=== PATIENT | female | born 1965 | race Caucasian/White ===

== ENCOUNTER 2019-04-03 06:52 | Day surgery (SDC) | payer OTHER ==
[2019-04-02] MEDS: CEFAZOLIN 2 GM/50 ML (PMX) 50 ML IVPB (05:30)
[2019-04-03] MEDS ORDERED: GABAPENTIN 300 MG CAP ×2 (09:18→09:23)
[2019-04-03] MEDS ORDERED: DEXAMETHASONE 2 MG TAB (09:19)
[2019-04-03] MEDS: DEXAMETHASONE 1 MG TAB PO (09:22)
[2019-04-03] MEDS ORDERED: DEXAMETHASONE 1 MG TAB (09:22)
[2019-04-03] MEDS: GABAPENTIN 300 MG CAP PO (09:23)
[2019-04-03] MEDS ORDERED: FENTAnyl 50 MCG/ML VIAL (11:34)
[2019-04-03] MEDS ORDERED: ROPIVACAINE 0.5 % 30 ML VIAL (11:34)
[2019-04-03] MEDS ORDERED: PROPOFOL 20 ML (11:34)
[2019-04-03] MEDS ORDERED: ROCURONIUM 50 MG INJ (11:34)
[2019-04-03] MEDS ORDERED: MIDAZOLAM 1 MG/ML 2 ML INJ (11:34)
[2019-04-03] MEDS ORDERED: CEFAZOLIN 1 GM INJ (11:36)
[2019-04-03] MEDS: EPINEPHrine 1 MG/ML 30 ML INJ (13:35)
[2019-04-03] MEDS: TRANEXAMIC ACID 1GM/100ML(PMX) 100 ML IVPB (13:39)
[2019-04-03] MEDS ORDERED: DEXAMETHASONE 4 MG/ML 5 ML INJ (13:47)
[2019-04-03] MEDS ORDERED: METOCLOPRAMIDE 10 MG INJ (13:47)
[2019-04-03] MEDS ORDERED: ONDANSETRON 4 MG INJ (13:47)
[2019-04-03] MEDS ORDERED: KETOROLAC 30 MG INJ (13:47)
[2019-04-03] MEDS ORDERED: SUGAMMADEX SODIUM 200 MG/2 ML VIAL IV (14:06)
[2019-04-03] MEDS ORDERED: ONDANSETRON 4 MG INJ IV (15:00)
[2019-04-03] MEDS ORDERED: EPHEDrine 25 MG/5 ML SYG IV (15:00)
[2019-04-03] MEDS ORDERED: OXYCODONE/ACETAMINOPHEN (5/325) TAB PO (15:00)
[2019-04-03] MEDS ORDERED: HYDROmorphONE 1 MG/5 ML IV SYRINGE IV ×2 (15:00)
[2019-04-03] MEDS ORDERED: hydrALAzine 20 MG INJ IV (15:00)
[2019-04-03] MEDS ORDERED: METOCLOPRAMIDE 10 MG INJ IV (15:00)
[2019-04-03] MEDS ORDERED: FENTAnyl 50 MCG/ML VIAL IV ×2 (15:00)
[2019-04-03] MEDS ORDERED: LABETALOL HCL 20MG INJ IV (15:00)
[2019-04-03] MEDS: LACTATED RINGER'S 1,000 ML IV (15:30)
== END 2019-04-03 17:05 | disposition home or self-care (01) ==
LOC: SDS 06:52
DX: M25.811 Other specified joint disorders, right shoulder (principal); M75.101 Unspecified rotator cuff tear or rupture of right shoulder, not specified as traumatic
CPT/HCPCS: 23405